=== PATIENT | female | born 1995 | race Caucasian/White ===

== ENCOUNTER → 2016-06-21 | Outpatient (REF) | payer OTHER | LOC: M SFHCLERA 19:38 | PROVIDERS: ATTEND Nurse Practitioner Family | DX: J02.9 Acute pharyngitis, unspecified (principal) ==

== ENCOUNTER 2016-06-22 10:16 | Emergency (ER) | payer OTHER ==
[2016-06-22] MEDS ORDERED: KETOROLAC 30 MG/ML VIAL (J1885) As Ordered ONE (11:13)
[2016-06-22] MEDS ORDERED: dexameTHASONE 4 MG/ML 1ML VIAL (J1100) As Ordered ONE (11:13)
[2016-06-22] MEDS ORDERED: ONDANSETRON 4MG/2ML VIAL (J2405) As Ordered ONE (11:13)
[2016-06-22 11:36] LABS: BASO # 0.2 K/mm3 (0.0-0.2); BASO % 1.7 % (0.0-1.0); EOS # 0.3 K/mm3 (0.0-0.50); EOS % 2.3 % (0.0-3.0); LARGE UNSTAINED CELL # 0.3 K/mm3 (0.0-0.4); LARGE UNSTAINED CELL % 2.4 % (0.0-4.0); LYMPH # 2.2 K/mm3 (1.5-6.5); LYMPH % 12.7 % (24.0-44.0); MEAN CORPUSCULAR HGB CONC 33.8 g/dl (32.0-36.5); MEAN CORPUSCULAR VOLUME 88.7 fl (80.0-96.0); MONO # 0.5 K/mm3 (0.0-0.8); MONO % 3.5 % (0.0-5.0); NEUTROPHILS # 11.3 K/mm3 (1.8-7.7); NEUTROPHILS % 77.5 % (36.0-66.0); PLATELET COUNT, AUTOMATED 314 k/mm3 (150-450); RED CELL DISTRIBUTION WIDTH 12.9 % (11.5-14.5); WHITE BLOOD COUNT 14.6 K/mm3 (4.0-10.0)
[2016-06-22 12:29] LABS: ANION GAP 8 MEQ/L (8-16); BLOOD UREA NITROGEN 12 MG/DL (7-18); CALCIUM LEVEL 8.5 MG/DL (8.5-10.1); CARBON DIOXIDE LEVEL 28 MEQ/L (21-32); CHLORIDE LEVEL 106 MEQ/L (98-107); CREATININE FOR GFR 0.74 MG/DL (0.55-1.02); GLOMERULAR FILTRATION RATE > 60.0 (>60); GLUCOSE, FASTING 82 MG/DL (70-105); POTASSIUM SERUM 4.1 MEQ/L (3.5-5.1); SODIUM LEVEL 142 MEQ/L (136-145)
[2016-06-22] MEDS ORDERED: ISOVUE-370 76% 100ML VIAL (Q9967) As Ordered ONE (12:34)
--- NOTE | 2016-06-22 13:19 | REP ---
Clinical: Swelling. Rule out abscess. Technique: Axial contrast enhanced images from the mid skull through the thoracic inlet using 100 ml Isovue 370 intravenous contrast material with coronal and sagittal re-formations. Findings: Moderate diffuse mucoperiosteal changes involving the visualized ethmoid sphenoid and maxillary sinuses (left greater than right) compatible with acute / chronic sinusitis. The osseous structures are intact. Visualized portions of the bilateral orbits are symmetric and normal. The surrounding subcutaneous and soft tissues are relatively clear and without significant inflammatory changes. The airway is patent and midline. The parapharyngeal and retropharyngeal soft tissues are normal. There is no abscess, fluid collection or mass. Impression: Moderate acute/chronic sinusitis. No abscess, fluid collection or mass/mass effect. Signed by Eric Rob MD 06/22/2016 01:11 P
--- NOTE | 2016-06-22 13:44 | EDDOCDS ---
Physician Documentation [facility] Name: Liz Benítez Age: 21 yrs Sex: Female : 1995 Arrival Date: 06/22/2016 Time: 10:16 Bed I3 / M3 Private MD: ANGIE Kamara Disposition: 06/22/16 13:34 Discharged to Home/Self Care. Impression: Acute pharyngitis. - Condition is Stable. - Discharge Instructions: Pharyngitis, Salt Water Gargle. - Medication Reconciliation, Local Pharmacy Hours form. - Follow up: ANGIE Kamara; When: 2 - 3 days; Reason: Recheck today's complaints. Follow up: Emergency Department; When: As needed; Reason: Fever > 102F, Trouble breathing, Worsening of conditions. - Problem is new. - Symptoms have improved. - Notes: start amoxicillin as previously prescribed today, take as directed Historical: - Allergies: Morphine (Hives); Tramadol HCl (Hives); - Home Meds: 1. Ortho Tri-Cyclen (28) 0.18/0.215/0.25 mg-35 mcg (28) Oral tab 1 tab once daily 2. Cymbalta 30 mg Oral cpDR 1 cap once daily (Last dose: 06/21/2016) 3. acetaminophen 325 mg Oral tab 2 tabs every 4 hours (Last dose: 06/22/2016 05:00) 4. ibuprofen 400 mg Oral tab as needed (Last dose: 06/21/2016 19:00) - PMHx: none; - PSHx: back surgery; wisdom teeth extraction; ; - Social history: Smoking status: Patient states was never smoker of tobacco. No barriers to communication noted, The patient speaks fluent Azeri, Speaks appropriately for age. - Family history: Not pertinent. - : The pt / caregiver states he / she is not on anticoagulants. Home medication list is obtained from the patient. - Exposure Risk Screening:: None identified. 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 7 in. (170.18 cm) (R); Pain 10/10; 12:36 BP 126 / 73; Pulse 76; Resp 16; Temp 98.6(O); Pulse Ox 100% on R/A; kr3 13:43 BP 120 / 59; Pulse 88; Resp 16; Temp 99.1(O); Pulse Ox 95% on R/A; Pain 0/10; kr3 10:18 Body Mass Index 32.11 (92.99 kg, 170.18 cm) ct3 MDM: 11:03 IV Saline Lock ordered. ar2 11:03 Dexamethasone 8 mg IV at bolus once ordered. ar2 11:03 Ondansetron 4 mg IVP once ordered. ar2 11:03 NS 0.9% 1000 ml IV at bolus once ordered. ar2 11:03 ketorolac 30 mg IVP once ordered. ar2 11:04 CBC with Diff Ordered. EDMS 11:04 MED Profile Ordered. EDMS 11:04 CT Neck With Contrast Ordered. EDMS 11:38 Financial registration complete. mm15 11:43 [facility] Payment Agreement was scanned into [employer] and attached to record. mm15 12:38 CBC with Diff Reviewed. ar2 12:38 MED Profile Reviewed. ar2 Administered Medications: 11:24 Drug: Ondansetron 4 mg [ondansetron HCl 2 mg/mL intravenous solution (2 mL)] Route: kr3 IVP; Site: right hand; 12:09 Follow up: Response: No Adverse Reaction kr3 11:26 Drug: NS 0.9% 1000 ml [sodium chloride 0.9 % intravenous solution] Route: IV; Rate: kr3 bolus; Site: right hand; 12:36 Follow up: BP 126 / 73; Pulse 76 bpm; Resp 16 bpm; Temp 98.6 Oral; Pulse Ox 100% RA kr3 13:44 Follow up: IV Status: Completed infusion; IV Intake: 1000ml kr3 11:26 Drug: ketorolac 30 mg [ketorolac 30 mg/mL (1 mL) injection solution (1 mL)] Route: IVP; kr3 Site: right hand; 12:09 Follow up: Response: No significant change. kr3 11:29 Drug: Dexamethasone 8 mg [dexamethasone 4 mg/mL injection solution] Route: IV; Rate: kr3 bolus; Site: right hand; 12:09 Follow up: Response: No significant change.; IV Status: Completed infusion kr3 13:44 Follow up: IV Status: Completed infusion kr3 Signatures: Dispatcher [employer] Andria Leon,JASMIN RN kr3 Edward Urban, PA-C PA-C ar2 Yenny Kaur RN RN hs1 Mona Gamboa mm15 The chart was reviewed and I authenticate all verbal orders and agree with the evaluation and treatment provided.Attachments: 11:43 [facility] Payment Agreement mm15 MTDD
--- NOTE | 2016-06-22 13:44 | EDDOCDS ---
Nurse's Notes [facility] Name: Liz Benítez Age: 21 yrs Sex: Female : 1995 Arrival Date: 06/22/2016 Time: 10:16 Bed I3 / M3 Private MD: ANGIE Kamara Diagnosis: Acute pharyngitis Presentation: 06/22 10:27 Presenting complaint: Patient states: saw PCP on Tuesday for sore throat and was given hs1 ibuprofen and tylenol. Next saw urgent care last night for same sore throat and was tested for strep and mono and was negative. Patient presents here for same and states that sore throat is increased and patient has difficulty swallowing. Was told to see ER by PCP office today. Risk factors: Stridor is not present. Drooling is not present. Shortness of breath is not present. Cellulitis is not present. Adult Sepsis Screening: The patient does not have new or worsening altered mentation. Patient's respiratory rate is less than 22. Systolic blood pressure is greater than 100. Patient has a qSOFA score of 0- Negative Sepsis Screen. Suicide/Homicide risk assessment- the patient denies having any suicidal and/or homicidal ideations and does not present with any other emotional, behavioral or mental health complaints. Status: The patient is a dependent. Transition of care: patient was not received from another setting of care. 10:27 Acuity: MONA Level 4 hs1 10:27 Method Of Arrival: Walkin/Carried/Asstd hs1 10:34 Presenting complaint: patient states that she was given Rx for amoxicillin but has not hs1 filled prescription yesterday. Triage Assessment: 10:32 General: Appears in no apparent distress, Behavior is appropriate for age, cooperative. hs1 Pain: Location: neck Pain currently is 9 out of 10 on a pain scale. HIV screening NA for this visit Offered previously. EENT: Reports difficulty swallowing feels like knives. Derm: Skin is pink, warm & dry. normal. 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 Ortho Tri-Cyclen (28) 0.18/0.215/0.25 mg-35 mcg (28) Oral tab 1 tab once daily 2. Cymbalta 30 mg Oral cpDR 1 cap once daily (Last dose: 06/21/2016) 3. acetaminophen 325 mg Oral tab 2 tabs every 4 hours (Last dose: 06/22/2016 05:00) 4. ibuprofen 400 mg Oral tab as needed (Last dose: 06/21/2016 19:00) - PMHx: none; - PSHx: back surgery; wisdom teeth extraction; ; - Social history: Smoking status: Patient states was never smoker of tobacco. No barriers to communication noted, The patient speaks fluent Greenlandic, Speaks appropriately for age. - Family history: Not pertinent. - : The pt / caregiver states he / she is not on anticoagulants. Home medication list is obtained from the patient. - Exposure Risk Screening:: None identified. Screenin:33 Screening information is obtained from the patient. Fall risk: No risks identified. hs1 Assistance ADL's: requires no assistance with activities of daily living. Abuse/DV Screen: The patient / caregiver reports he/she is: not in a situation that causes fear, pain or injury. Nutritional screening: No deficits noted. Advance Directives: There is no active DNR order. home support is adequate. Assessment: 11:28 General: Appears in no apparent distress, comfortable, Behavior is appropriate for age, kr3 cooperative, pleasant. Pain: Location: ears and nose and throat Pain currently is 10 out of 10 on a pain scale. Neurological: No deficits noted. EENT: Throat is clear Reports pressure both ears, post nasal drainage and discomfort swallowing. Respiratory: Airway is patent Respiratory effort is even, unlabored. GI: Reports intolerance of food, intolerance of fluids. Derm: Skin is normal. 12:09 Reassessment: Patient appears in no apparent distress at this time. reports no kr3 improvement, reports 'my throat is killing me'. Respiratory: Respiratory effort is even, unlabored. Derm: Skin is normal. 12:36 Reassessment: Patient appears in no apparent distress at this time. states ear pressure kr3 is much better but throat is 9/10 pain. 13:43 Reassessment: Patient appears in no apparent distress at this time. Patient denies pain kr3 at this time. Vital Signs: 10:18 BP 106 / 64; Pulse 111; Resp 18; Temp 98.1(O); Pulse Ox 97% on R/A; Weight 92.99 kg ct3 (R); Height 5 ft. 7 in. (170.18 cm) (R); Pain 10/10; 12:36 BP 126 / 73; Pulse 76; Resp 16; Temp 98.6(O); Pulse Ox 100% on R/A; kr3 13:43 BP 120 / 59; Pulse 88; Resp 16; Temp 99.1(O); Pulse Ox 95% on R/A; Pain 0/10; kr3 10:18 Body Mass Index 32.11 (92.99 kg, 170.18 cm) ct3 Vitals: 10:18 Log In Time: June 22, 2016 at 10:15. ct3 ED Course: 10:18 Patient visited by Lisbeth Morris PCA. ct3 10:18 MATTEO Kamara is Private Physician. ct3 10:18 Patient moved to Waiting ct3 10:19 Patient moved to Pre RCE ct3 10:30 Triage Initiated hs1 10:34 The patient / caregiver is instructed regarding the plan of care and ED course. hs1 10:50 Patient moved to Triage 3 rs6 10:55 Edward Urban PA-C is PHCP. ar2 10:55 Stephy Burnette MD is Attending Physician. ar2 10:55 Patient visited by Edward Urban PA-C. ar2 11:11 Patient moved to I3 / M3 ms18 11:28 Patient visited by Andria Greenberg RN. kr3 11:28 Accompanied by Friend, Patient has correct armband on for positive identification. kr3 Placed in gown. Bed in low position. Call light in reach. Side rails up X 1. 11:28 Inserted saline lock: 20 gauge in right hand and blood collected. kr3 11:30 MED Profile Sent. kr3 11:30 CBC with Diff Sent. kr3 11:43 [place] [place] was scanned into [employer] and attached to record. mm15 12:08 Patient visited by Andria Greenberg RN. kr3 12:49 Patient visited by Gloria Samson RN. mcp 12:49 Warm blanket given. mcp 13:34 ANGIE Kamara is Referral Physician. ar2 13:43 Discontinued lock intact, bleeding controlled, pressure dressing applied, No kr3 redness/swelling at site. No procedures done that require assistance. Administered Medications: 11:24 Drug: Ondansetron 4 mg [ondansetron HCl 2 mg/mL intravenous solution (2 mL)] Route: kr3 IVP; Site: right hand; 12:09 Follow up: Response: No Adverse Reaction kr3 11:26 Drug: NS 0.9% 1000 ml [sodium chloride 0.9 % intravenous solution] Route: IV; Rate: kr3 bolus; Site: right hand; 12:36 Follow up: BP 126 / 73; Pulse 76 bpm; Resp 16 bpm; Temp 98.6 Oral; Pulse Ox 100% RA kr3 13:44 Follow up: IV Status: Completed infusion; IV Intake: 1000ml kr3 11:26 Drug: ketorolac 30 mg [ketorolac 30 mg/mL (1 mL) injection solution (1 mL)] Route: IVP; kr3 Site: right hand; 12:09 Follow up: Response: No significant change. kr3 11:29 Drug: Dexamethasone 8 mg [dexamethasone 4 mg/mL injection solution] Route: IV; Rate: kr3 bolus; Site: right hand; 12:09 Follow up: Response: No significant change.; IV Status: Completed infusion kr3 13:44 Follow up: IV Status: Completed infusion kr3 Intake: 13:44 IV: 1000.00ml; Total: 1000.00ml. kr3 Order Results: Lab Order: CBC with Diff; SPEC'M 06/22/16 11:23 Test: WHITE BLOOD COUNT; Value: 14.6; Range: 4.0-10.0; Abnormal: Above high normal; Units: K/mm3; Status: F Test: RED BLOOD COUNT; Value: 4.84; Range: 4.00-5.40; Units: M/mm3; Status: F Test: HEMOGLOBIN; Value: 14.5; Range: 12.0-16.0; Units: g/dl; Status: F Test: HEMATOCRIT; Value: 42.9; Range: 36.0-47.0; Units: %; Status: F Test: MEAN CORPUSCULAR VOLUME; Value: 88.7; Range: 80.0-96.0; Units: fl; Status: F Test: MEAN CORPUSCULAR HEMOGLOBIN; Value: 30.0; Range: 27.0-33.0; Units: pg; Status: F Test: MEAN CORPUSCULAR HGB CONC; Value: 33.8; Range: 32.0-36.5; Units: g/dl; Status: F Test: RED CELL DISTRIBUTION WIDTH; Value: 12.9; Range: 11.5-14.5; Units: %; Status: F Test: PLATELET COUNT, AUTOMATED; Value: 314; Range: 150-450; Units: k/mm3; Status: F Test: NEUTROPHILS %; Value: 77.5; Range: 36.0-66.0; Abnormal: Above high normal; Units: %; Status: F Test: LYMPH %; Value: 12.7; Range: 24.0-44.0; Abnormal: Below low normal; Units: %; Status: F Test: MONO %; Value: 3.5; Range: 0.0-5.0; Units: %; Status: F Test: EOS %; Value: 2.3; Range: 0.0-3.0; Units: %; Status: F Test: BASO %; Value: 1.7; Range: 0.0-1.0; Abnormal: Above high normal; Units: %; Status: F Test: LARGE UNSTAINED CELL %; Value: 2.4; Range: 0.0-4.0; Units: %; Status: F Test: NEUTROPHILS #; Value: 11.3; Range: 1.8-7.7; Abnormal: Above high normal; Units: K/mm3; Status: F Test: LYMPH #; Value: 2.2; Range: 1.5-6.5; Units: K/mm3; Status: F Test: MONO #; Value: 0.5; Range: 0.0-0.8; Units: K/mm3; Status: F Test: EOS #; Value: 0.3; Range: 0.0-0.50; Units: K/mm3; Status: F Test: BASO #; Value: 0.2; Range: 0.0-0.2; Units: K/mm3; Status: F Test: LARGE UNSTAINED CELL #; Value: 0.3; Range: 0.0-0.4; Units: K/mm3; Status: F Lab Order: MED Profile; SPEC'M 06/22/16 12:01 Test: GLUCOSE, FASTING; Value: 82; Range: 70-105; Units: MG/DL; Status: F Test: BLOOD UREA NITROGEN; Value: 12; Range: 7-18; Units: MG/DL; Status: F Test: CREATININE FOR GFR; Value: 0.74; Range: 0.55-1.02; Units: MG/DL; Status: F Test: GLOMERULAR FILTRATION RATE; Value: > 60.0; Range: >60; Status: F Test: SODIUM LEVEL; Value: 142; Range: 136-145; Units: MEQ/L; Status: F Test: POTASSIUM SERUM; Value: 4.1; Range: 3.5-5.1; Units: MEQ/L; Status: F Test: CHLORIDE LEVEL; Value: 106; Range: 98-107; Units: MEQ/L; Status: F Test: CARBON DIOXIDE LEVEL; Value: 28; Range: 21-32; Units: MEQ/L; Status: F Test: ANION GAP; Value: 8; Range: 8-16; Units: MEQ/L; Status: F Test: CALCIUM LEVEL; Value: 8.5; Range: 8.5-10.1; Units: MG/DL; Status: F Test Note: ; Units are mL/min/1.73 m2 Chronic Kidney Disease Staging per NKF: Stage I & II GFR >=60 Normal to Mildly Decreased Stage III GFR 30-59 Moderately Decreased Stage IV GFR 15-29 Severely Decreased Stage V GFR <15 Very Little GFR Left ESRD GFR <15 on PATTERNMAKER ALL AROUND Outcome: 13:34 Discharge ordered by Provider. ar2 13:42 Discharge Assessment: patient administered narcotics - no. The following High Risk kr3 Discharge criteria are identified: None. Discharged to home ambulatory, with friend. Condition: improved. Discharge instructions given to patient, Instructed on discharge instructions, follow up and referral plans. medication usage, Demonstrated understanding of instructions, medications, Pt was receptive of discharge instructions/ teaching. CT Study completed. Property sent home with patient. 13:44 Patient left the ED. kr3 Signatures: Gloria Samson RN JASMIN [facility] Andria Greenberg RN RN kr3 Edward Urban, PA-C PA-C ar2 eYnny Kaur RN RN hs1 Lisbeth Morris, MATERNITY FLOOR SUPERVISOR MATERNITY FLOOR SUPERVISOR ct3 Mona Gamboa mm15 Orin Sebastian RN RN ms18 Vinicio, Isaura, MATERNITY FLOOR SUPERVISOR MATERNITY FLOOR SUPERVISOR rs6 MTDD
--- NOTE | 2016-06-24 14:45 | EDDOCDS ---
Nurse's Notes [facility] Name: Liz Benítez Age: 21 yrs Sex: Female : 1995 Arrival Date: 06/22/2016 Time: 10:16 Bed I3 / M3 Private MD: ANGIE Kamara Diagnosis: Acute pharyngitis Presentation: 06/22 10:27 Presenting complaint: Patient states: saw PCP on Tuesday for sore throat and was given hs1 ibuprofen and tylenol. Next saw urgent care last night for same sore throat and was tested for strep and mono and was negative. Patient presents here for same and states that sore throat is increased and patient has difficulty swallowing. Was told to see ER by PCP office today. Risk factors: Stridor is not present. Drooling is not present. Shortness of breath is not present. Cellulitis is not present. Adult Sepsis Screening: The patient does not have new or worsening altered mentation. Patient's respiratory rate is less than 22. Systolic blood pressure is greater than 100. Patient has a qSOFA score of 0- Negative Sepsis Screen. Suicide/Homicide risk assessment- the patient denies having any suicidal and/or homicidal ideations and does not present with any other emotional, behavioral or mental health complaints. Status: The patient is a dependent. Transition of care: patient was not received from another setting of care. 10:27 Acuity: MONA Level 4 hs1 10:27 Method Of Arrival: Walkin/Carried/Asstd hs1 10:34 Presenting complaint: patient states that she was given Rx for amoxicillin but has not hs1 filled prescription yesterday. Triage Assessment: 10:32 General: Appears in no apparent distress, Behavior is appropriate for age, cooperative. hs1 Pain: Location: neck Pain currently is 9 out of 10 on a pain scale. HIV screening NA for this visit Offered previously. EENT: Reports difficulty swallowing feels like knives. Derm: Skin is pink, warm & dry. normal. COOKER SODA: 10:33 LMP 06/20/2016 hs1 Historical: - Allergies: Morphine (Hives); Tramadol HCl (Hives); - Home Meds: 1. Ortho Tri-Cyclen (28) 0.18/0.215/0.25 mg-35 mcg (28) Oral tab 1 tab once daily 2. Cymbalta 30 mg Oral cpDR 1 cap once daily (Last dose: 06/21/2016) 3. acetaminophen 325 mg Oral tab 2 tabs every 4 hours (Last dose: 06/22/2016 05:00) 4. ibuprofen 400 mg Oral tab as needed (Last dose: 06/21/2016 19:00) - PMHx: none; - PSHx: back surgery; wisdom teeth extraction; ; - Social history: Smoking status: Patient states was never smoker of tobacco. No barriers to communication noted, The patient speaks fluent Macedonian, Speaks appropriately for age. - Family history: Not pertinent. - : The pt / caregiver states he / she is not on anticoagulants. Home medication list is obtained from the patient. - Exposure Risk Screening:: None identified. Screenin:33 Screening information is obtained from the patient. Fall risk: No risks identified. hs1 Assistance ADL's: requires no assistance with activities of daily living. Abuse/DV Screen: The patient / caregiver reports he/she is: not in a situation that causes fear, pain or injury. Nutritional screening: No deficits noted. Advance Directives: There is no active DNR order. home support is adequate. Assessment: 11:28 General: Appears in no apparent distress, comfortable, Behavior is appropriate for age, kr3 cooperative, pleasant. Pain: Location: ears and nose and throat Pain currently is 10 out of 10 on a pain scale. Neurological: No deficits noted. EENT: Throat is clear Reports pressure both ears, post nasal drainage and discomfort swallowing. Respiratory: Airway is patent Respiratory effort is even, unlabored. GI: Reports intolerance of food, intolerance of fluids. Derm: Skin is normal. 12:09 Reassessment: Patient appears in no apparent distress at this time. reports no kr3 improvement, reports 'my throat is killing me'. Respiratory: Respiratory effort is even, unlabored. Derm: Skin is normal. 12:36 Reassessment: Patient appears in no apparent distress at this time. states ear pressure kr3 is much better but throat is 9/10 pain. 13:43 Reassessment: Patient appears in no apparent distress at this time. Patient denies pain kr3 at this time. Vital Signs: 10:18 BP 106 / 64; Pulse 111; Resp 18; Temp 98.1(O); Pulse Ox 97% on R/A; Weight 92.99 kg ct3 (R); Height 5 ft. 7 in. (170.18 cm) (R); Pain 10/10; 12:36 BP 126 / 73; Pulse 76; Resp 16; Temp 98.6(O); Pulse Ox 100% on R/A; kr3 13:43 BP 120 / 59; Pulse 88; Resp 16; Temp 99.1(O); Pulse Ox 95% on R/A; Pain 0/10; kr3 10:18 Body Mass Index 32.11 (92.99 kg, 170.18 cm) ct3 Vitals: 10:18 Log In Time: June 22, 2016 at 10:15. ct3 ED Course: 10:18 Patient visited by Lisbeth Morris PCA. ct3 10:18 MATTEO Kamara is Private Physician. ct3 10:18 Patient moved to Waiting ct3 10:19 Patient moved to Pre RCE ct3 10:30 Triage Initiated hs1 10:34 The patient / caregiver is instructed regarding the plan of care and ED course. hs1 10:50 Patient moved to Triage 3 rs6 10:55 Edward Urban PA-C is PHCP. ar2 10:55 Stephy Burnette MD is Attending Physician. ar2 10:55 Patient visited by Edward Urban PA-C. ar2 11:11 Patient moved to I3 / M3 ms18 11:28 Patient visited by Andria Greenberg RN. kr3 11:28 Accompanied by Friend, Patient has correct armband on for positive identification. kr3 Placed in gown. Bed in low position. Call light in reach. Side rails up X 1. 11:28 Inserted saline lock: 20 gauge in right hand and blood collected. kr3 11:30 MED Profile Sent. kr3 11:30 CBC with Diff Sent. kr3 11:43 [facility] [place] was [place] into [employer] and attached to record. mm15 12:08 Patient visited by Andria Greenberg RN. kr3 12:49 Patient visited by Gloria Samson RN. mcp 12:49 Warm blanket given. mcp 13:34 ANGIE Kamara is Referral Physician. ar2 13:43 Discontinued lock intact, bleeding controlled, pressure dressing applied, No kr3 redness/swelling at site. No procedures done that require assistance. 14:14 CT Neck With Contrast Returned. EDMS 14:41 T-Sheet-- Draft Copy was scanned into [employer] and attached to record. gb Administered Medications: 11:24 Drug: Ondansetron 4 mg [ondansetron HCl 2 mg/mL intravenous solution (2 mL)] Route: kr3 IVP; Site: right hand; 12:09 Follow up: Response: No Adverse Reaction kr3 11:26 Drug: NS 0.9% 1000 ml [sodium chloride 0.9 % intravenous solution] Route: IV; Rate: kr3 bolus; Site: right hand; 12:36 Follow up: BP 126 / 73; Pulse 76 bpm; Resp 16 bpm; Temp 98.6 Oral; Pulse Ox 100% RA kr3 13:44 Follow up: IV Status: Completed infusion; IV Intake: 1000ml kr3 11:26 Drug: ketorolac 30 mg [ketorolac 30 mg/mL (1 mL) injection solution (1 mL)] Route: IVP; kr3 Site: right hand; 12:09 Follow up: Response: No significant change. kr3 11:29 Drug: Dexamethasone 8 mg [dexamethasone 4 mg/mL injection solution] Route: IV; Rate: kr3 bolus; Site: right hand; 12:09 Follow up: Response: No significant change.; IV Status: Completed infusion kr3 13:44 Follow up: IV Status: Completed infusion kr3 Intake: 13:44 IV: 1000.00ml; Total: 1000.00ml. kr3 Order Results: Lab Order: CBC with Diff; SPEC'M 06/22/16 11:23 Test: WHITE BLOOD COUNT; Value: 14.6; Range: 4.0-10.0; Abnormal: Above high normal; Units: K/mm3; Status: F Test: RED BLOOD COUNT; Value: 4.84; Range: 4.00-5.40; Units: M/mm3; Status: F Test: HEMOGLOBIN; Value: 14.5; Range: 12.0-16.0; Units: g/dl; Status: F Test: HEMATOCRIT; Value: 42.9; Range: 36.0-47.0; Units: %; Status: F Test: MEAN CORPUSCULAR VOLUME; Value: 88.7; Range: 80.0-96.0; Units: fl; Status: F Test: MEAN CORPUSCULAR HEMOGLOBIN; Value: 30.0; Range: 27.0-33.0; Units: pg; Status: F Test: MEAN CORPUSCULAR HGB CONC; Value: 33.8; Range: 32.0-36.5; Units: g/dl; Status: F Test: RED CELL DISTRIBUTION WIDTH; Value: 12.9; Range: 11.5-14.5; Units: %; Status: F Test: PLATELET COUNT, AUTOMATED; Value: 314; Range: 150-450; Units: k/mm3; Status: F Test: NEUTROPHILS %; Value: 77.5; Range: 36.0-66.0; Abnormal: Above high normal; Units: %; Status: F Test: LYMPH %; Value: 12.7; Range: 24.0-44.0; Abnormal: Below low normal; Units: %; Status: F Test: MONO %; Value: 3.5; Range: 0.0-5.0; Units: %; Status: F Test: EOS %; Value: 2.3; Range: 0.0-3.0; Units: %; Status: F Test: BASO %; Value: 1.7; Range: 0.0-1.0; Abnormal: Above high normal; Units: %; Status: F Test: LARGE UNSTAINED CELL %; Value: 2.4; Range: 0.0-4.0; Units: %; Status: F Test: NEUTROPHILS #; Value: 11.3; Range: 1.8-7.7; Abnormal: Above high normal; Units: K/mm3; Status: F Test: LYMPH #; Value: 2.2; Range: 1.5-6.5; Units: K/mm3; Status: F Test: MONO #; Value: 0.5; Range: 0.0-0.8; Units: K/mm3; Status: F Test: EOS #; Value: 0.3; Range: 0.0-0.50; Units: K/mm3; Status: F Test: BASO #; Value: 0.2; Range: 0.0-0.2; Units: K/mm3; Status: F Test: LARGE UNSTAINED CELL #; Value: 0.3; Range: 0.0-0.4; Units: K/mm3; Status: F Lab Order: MED Profile; IQRA'Wendy 06/22/16 12:01 Test: GLUCOSE, FASTING; Value: 82; Range: 70-105; Units: MG/DL; Status: F Test: BLOOD UREA NITROGEN; Value: 12; Range: 7-18; Units: MG/DL; Status: F Test: CREATININE FOR GFR; Value: 0.74; Range: 0.55-1.02; Units: MG/DL; Status: F Test: GLOMERULAR FILTRATION RATE; Value: > 60.0; Range: >60; Status: F Test: SODIUM LEVEL; Value: 142; Range: 136-145; Units: MEQ/L; Status: F Test: POTASSIUM SERUM; Value: 4.1; Range: 3.5-5.1; Units: MEQ/L; Status: F Test: CHLORIDE LEVEL; Value: 106; Range: 98-107; Units: MEQ/L; Status: F Test: CARBON DIOXIDE LEVEL; Value: 28; Range: 21-32; Units: MEQ/L; Status: F Test: ANION GAP; Value: 8; Range: 8-16; Units: MEQ/L; Status: F Test: CALCIUM LEVEL; Value: 8.5; Range: 8.5-10.1; Units: MG/DL; Status: F Test Note: ; Units are mL/min/1.73 m2 Chronic Kidney Disease Staging per NKF: Stage I & II GFR >=60 Normal to Mildly Decreased Stage III GFR 30-59 Moderately Decreased Stage IV GFR 15-29 Severely Decreased Stage V GFR <15 Very Little GFR Left ESRD GFR <15 on [facility] SPECIALIST Radiology Order: CT Neck With Contrast Test: CT Neck With Contrast REASON FOR EXAMINATION: r/o abscess; Clinical: Swelling. Rule out abscess.; ; Technique: Axial contrast enhanced images from the mid skull through the; thoracic inlet using 100 ml Isovue 370 intravenous contrast material with coronal; and sagittal re-formations.; ; Findings:; Moderate diffuse mucoperiosteal changes involving the visualized ethmoid sphenoid; and maxillary sinuses (left greater than right) compatible with acute / chronic; sinusitis. The osseous structures are intact. Visualized portions of the; bilateral orbits are symmetric and normal. The surrounding subcutaneous and soft; tissues are relatively clear and without significant inflammatory changes. The; airway is patent and midline. The parapharyngeal and retropharyngeal soft; tissues are normal. There is no abscess, fluid collection or mass.; ; Impression:; Moderate acute/chronic sinusitis.; No abscess, fluid collection or mass/mass effect.; ; ; Signed by; Eric Rob MD 06/22/2016 01:11 P; Outcome: 13:34 Discharge ordered by Provider. ar2 13:42 Discharge Assessment: patient administered narcotics - no. The following High Risk kr3 Discharge criteria are identified: None. Discharged to home ambulatory, with friend. Condition: improved. Discharge instructions given to patient, Instructed on discharge instructions, follow up and referral plans. medication usage, Demonstrated understanding of instructions, medications, Pt was receptive of discharge instructions/ teaching. CT Study completed. Property sent home with patient. 13:44 Patient left the ED. kr3 Signatures: Dispatcher [employer] EDMS Gloria Samson, RN RN mcp Jemma Hammond, Juan Pablo Reg gb Andria Greenberg RN RN kr3 Edward Urban, PA-C PA-C ar2 Yenny Kaur RN RN hs1 Lisbeth Morris, ASSISTANT RESEARCH SCIENTIST ASSISTANT RESEARCH SCIENTIST ct3 Mona Gamboa mm15 Orin Sebastian RN RN ms18 Isaura Mooney, ASSISTANT RESEARCH SCIENTIST ASSISTANT RESEARCH SCIENTIST rs6 Chart Complete MTDD
--- NOTE | 2016-06-24 14:45 | EDDOCDS ---
Physician Documentation [facility] Name: Liz Benítez Age: 21 yrs Sex: Female : 1995 Arrival Date: 06/22/2016 Time: 10:16 Bed I3 / M3 Private MD: ANGIE Kamara Disposition: 06/22/16 13:34 Discharged to Home/Self Care. Impression: Acute pharyngitis. - Condition is Stable. - Discharge Instructions: Pharyngitis, Salt Water Gargle. - Medication Reconciliation, Local Pharmacy Hours form. - Follow up: ANGIE Kamara; When: 2 - 3 days; Reason: Recheck today's complaints. Follow up: Emergency Department; When: As needed; Reason: Fever > 102F, Trouble breathing, Worsening of conditions. - Problem is new. - Symptoms have improved. - Notes: start amoxicillin as previously prescribed today, take as directed Historical: - Allergies: Morphine (Hives); Tramadol HCl (Hives); - Home Meds: 1. Ortho Tri-Cyclen (28) 0.18/0.215/0.25 mg-35 mcg (28) Oral tab 1 tab once daily 2. Cymbalta 30 mg Oral cpDR 1 cap once daily (Last dose: 06/21/2016) 3. acetaminophen 325 mg Oral tab 2 tabs every 4 hours (Last dose: 06/22/2016 05:00) 4. ibuprofen 400 mg Oral tab as needed (Last dose: 06/21/2016 19:00) - PMHx: none; - PSHx: back surgery; wisdom teeth extraction; ; - Social history: Smoking status: Patient states was never smoker of tobacco. No barriers to communication noted, The patient speaks fluent Hungarian, Speaks appropriately for age. - Family history: Not pertinent. - : The pt / caregiver states he / she is not on anticoagulants. Home medication list is obtained from the patient. - Exposure Risk Screening:: None identified. 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 7 in. (170.18 cm) (R); Pain 10/10; 12:36 BP 126 / 73; Pulse 76; Resp 16; Temp 98.6(O); Pulse Ox 100% on R/A; kr3 13:43 BP 120 / 59; Pulse 88; Resp 16; Temp 99.1(O); Pulse Ox 95% on R/A; Pain 0/10; kr3 10:18 Body Mass Index 32.11 (92.99 kg, 170.18 cm) ct3 MDM: 11:03 IV Saline Lock ordered. ar2 11:03 Dexamethasone 8 mg IV at bolus once ordered. ar2 11:03 Ondansetron 4 mg IVP once ordered. ar2 11:03 NS 0.9% 1000 ml IV at bolus once ordered. ar2 11:03 ketorolac 30 mg IVP once ordered. ar2 11:04 CBC with Diff Ordered. EDMS 11:04 MED Profile Ordered. EDMS 11:04 CT Neck With Contrast Ordered. EDMS 11:38 Financial registration complete. mm15 11:43 [facility] Payment Agreement was scanned into [employer] and attached to record. mm15 12:38 CBC with Diff Reviewed. ar2 12:38 MED Profile Reviewed. ar2 14:41 T-Sheet-- Draft Copy was scanned into [employer] and attached to record. gb Administered Medications: 11:24 Drug: Ondansetron 4 mg [ondansetron HCl 2 mg/mL intravenous solution (2 mL)] Route: kr3 IVP; Site: right hand; 12:09 Follow up: Response: No Adverse Reaction kr3 11:26 Drug: NS 0.9% 1000 ml [sodium chloride 0.9 % intravenous solution] Route: IV; Rate: kr3 bolus; Site: right hand; 12:36 Follow up: BP 126 / 73; Pulse 76 bpm; Resp 16 bpm; Temp 98.6 Oral; Pulse Ox 100% RA kr3 13:44 Follow up: IV Status: Completed infusion; IV Intake: 1000ml kr3 11:26 Drug: ketorolac 30 mg [ketorolac 30 mg/mL (1 mL) injection solution (1 mL)] Route: IVP; kr3 Site: right hand; 12:09 Follow up: Response: No significant change. kr3 11:29 Drug: Dexamethasone 8 mg [dexamethasone 4 mg/mL injection solution] Route: IV; Rate: kr3 bolus; Site: right hand; 12:09 Follow up: Response: No significant change.; IV Status: Completed infusion kr3 13:44 Follow up: IV Status: Completed infusion kr3 Signatures: Dispatcher [employer] EDMS Jemma Hammond Reg Reg gb Andria Greenberg RN RN kr3 Edward Urban PA-C PATamia sun2 Yenny Kaur RN RN hs1 Mona Gamboa mm15 The chart was reviewed and I authenticate all verbal orders and agree with the evaluation and treatment provided.Attachments: 11:43 [facility] Payment Agreement mm15 14:41 T-Sheet-- Draft Copy gb Chart Complete MTDD
--- NOTE | 2016-06-24 14:45 | EDDOCDS ---
Physician Documentation [facility] Name: Liz Benítez Age: 21 yrs Sex: Female : 1995 Arrival Date: 06/22/2016 Time: 10:16 Bed I3 / M3 Private MD: ANGIE Kamara Disposition: 06/22/16 13:34 Discharged to Home/Self Care. Impression: Acute pharyngitis. - Condition is Stable. - Discharge Instructions: Pharyngitis, Salt Water Gargle. - Medication Reconciliation, Local Pharmacy Hours form. - Follow up: ANGIE Kamara; When: 2 - 3 days; Reason: Recheck today's complaints. Follow up: Emergency Department; When: As needed; Reason: Fever > 102F, Trouble breathing, Worsening of conditions. - Problem is new. - Symptoms have improved. - Notes: start amoxicillin as previously prescribed today, take as directed Historical: - Allergies: Morphine (Hives); Tramadol HCl (Hives); - Home Meds: 1. Ortho Tri-Cyclen (28) 0.18/0.215/0.25 mg-35 mcg (28) Oral tab 1 tab once daily 2. Cymbalta 30 mg Oral cpDR 1 cap once daily (Last dose: 06/21/2016) 3. acetaminophen 325 mg Oral tab 2 tabs every 4 hours (Last dose: 06/22/2016 05:00) 4. ibuprofen 400 mg Oral tab as needed (Last dose: 06/21/2016 19:00) - PMHx: none; - PSHx: back surgery; wisdom teeth extraction; ; - Social history: Smoking status: Patient states was never smoker of tobacco. No barriers to communication noted, The patient speaks fluent Divehi, Speaks appropriately for age. - Family history: Not pertinent. - : The pt / caregiver states he / she is not on anticoagulants. Home medication list is obtained from the patient. - Exposure Risk Screening:: None identified. 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 7 in. (170.18 cm) (R); Pain 10/10; 12:36 BP 126 / 73; Pulse 76; Resp 16; Temp 98.6(O); Pulse Ox 100% on R/A; kr3 13:43 BP 120 / 59; Pulse 88; Resp 16; Temp 99.1(O); Pulse Ox 95% on R/A; Pain 0/10; kr3 10:18 Body Mass Index 32.11 (92.99 kg, 170.18 cm) ct3 MDM: 11:03 IV Saline Lock ordered. ar2 11:03 Dexamethasone 8 mg IV at bolus once ordered. ar2 11:03 Ondansetron 4 mg IVP once ordered. ar2 11:03 NS 0.9% 1000 ml IV at bolus once ordered. ar2 11:03 ketorolac 30 mg IVP once ordered. ar2 11:04 CBC with Diff Ordered. EDMS 11:04 MED Profile Ordered. EDMS 11:04 CT Neck With Contrast Ordered. EDMS 11:38 Financial registration complete. mm15 11:43 ON LICENSE OF [facility] Payment Agreement was scanned into [employer] and attached to record. mm15 12:38 CBC with Diff Reviewed. ar2 12:38 MED Profile Reviewed. ar2 14:41 T-Sheet-- Draft Copy was scanned into [employer] and attached to record. gb Administered Medications: 11:24 Drug: Ondansetron 4 mg [ondansetron HCl 2 mg/mL intravenous solution (2 mL)] Route: kr3 IVP; Site: right hand; 12:09 Follow up: Response: No Adverse Reaction kr3 11:26 Drug: NS 0.9% 1000 ml [sodium chloride 0.9 % intravenous solution] Route: IV; Rate: kr3 bolus; Site: right hand; 12:36 Follow up: BP 126 / 73; Pulse 76 bpm; Resp 16 bpm; Temp 98.6 Oral; Pulse Ox 100% RA kr3 13:44 Follow up: IV Status: Completed infusion; IV Intake: 1000ml kr3 11:26 Drug: ketorolac 30 mg [ketorolac 30 mg/mL (1 mL) injection solution (1 mL)] Route: IVP; kr3 Site: right hand; 12:09 Follow up: Response: No significant change. kr3 11:29 Drug: Dexamethasone 8 mg [dexamethasone 4 mg/mL injection solution] Route: IV; Rate: kr3 bolus; Site: right hand; 12:09 Follow up: Response: No significant change.; IV Status: Completed infusion kr3 13:44 Follow up: IV Status: Completed infusion kr3 Signatures: Dispatcher [employer] EDMS Jemma Hammond Reg Reg gb Andria Greenberg RN RN kr3 Edward Urban PA-C PATamia sun2 Yenny Kaur RN RN hs1 Mona Gamboa mm15 The chart was reviewed and I authenticate all verbal orders and agree with the evaluation and treatment provided.Attachments: 11:43 ON LICENSE OF [facility] Payment Agreement mm15 14:41 T-Sheet-- Draft Copy gb Chart Complete MTDD
== END 2016-06-22 13:44 | disposition home or self-care (01) ==
LOC: M ED 10:16
DX: J02.9 Acute pharyngitis, unspecified (principal); Z79.899 Other long term (current) drug therapy; Z79.3 Long term (current) use of hormonal contraceptives; Z88.8 Allergy status to other drugs, medicaments and biological substances
CPT/HCPCS: 36415; 70491; 80048; 85025; 96361; 96365; 96375; 99284; J1100; J1885; J2405; Q9967

== ENCOUNTER → 2016-08-02 | Outpatient (CLI) | payer OTHER ==
--- NOTE | 2016-08-02 16:17 | REP ---
MAXILLOFACIAL CT WITHOUT CONTRAST: HISTORY: Chronic pansinusitis. Mild mucosal thickening is present in the maxillary and right ethmoid sinuses. Minimal mucosal thickening is present in the frontal, sphenoid and left ethmoid sinuses. Mucosal thickening involves the ostiomeatal units. The middle and inferior nasal turbinates are partially paradoxical. There is heron bullosa of the middle nasal turbinates. There is minimal deviation of the nasal septum to the left. A spur is present arising from the left side of the nasal septum. The spur abuts the left middle and inferior nasal turbinates. The cribriform plate, medial almendarez of the orbits and optic canals are intact. The carotid canals form a segment of the posterolateral almendarez of the sphenoid sinus. IMPRESSION: Sinus mucosal thickening as described above. Signed by Michael Dodge MD 08/02/2016 04:24 P
== END ==
LOC: M RAD 15:37
PROVIDERS: ATTEND Otolaryngology
DX: J32.4 Chronic pansinusitis (principal)

== ENCOUNTER 2016-10-18 22:45 | Emergency (ER) | payer OTHER ==
[~2016-10-18] VITALS: Ht 170.2 cm; Wt 96.2 kg
[2016-10-18] MEDS ORDERED: AMOX500C PO (22:57)
[2016-10-18] MEDS ORDERED: IBUP600T26 PO (22:57)
[2016-10-19 03:00] VITALS: BP 138/69
[2016-10-19] MEDS ORDERED: AMPICILLIN SOD/SULBACTAM SOD 3 GM in D5W MINI-BAG PLUS 100 ML IV ONE (03:15)
[2016-10-19] MEDS ORDERED: methylPREDNISolone INJ 125 MG/2 ML VIAL (J2930) IV ONE (03:15)
[2016-10-19] MEDS ORDERED: ACETAMINOPHEN 325 MG/10.15 ML UDC PO ONE (03:15)
[2016-10-19 03:51] LABS: BASO % 0.4 % (0.0-1.0); EOS # 0.2 K/mm3 (0.0-0.50); EOS % 1.4 % (0.0-3.0); LARGE UNSTAINED CELL # 0.2 K/mm3 (0.0-0.4); LARGE UNSTAINED CELL % 1.6 % (0.0-4.0); LYMPH # 2.1 K/mm3 (1.5-6.5); LYMPH % 14.9 % (24.0-44.0); MEAN CORPUSCULAR HEMOGLOBIN 31.4 pg (27.0-33.0); MEAN CORPUSCULAR HGB CONC 33.8 g/dl (32.0-36.5); MONO # 0.8 K/mm3 (0.0-0.8); MONO % 5.6 % (0.0-5.0); NEUTROPHILS # 10.7 K/mm3 (1.8-7.7); NEUTROPHILS % 76.2 % (36.0-66.0); PLATELET COUNT, AUTOMATED 234 k/mm3 (150-450)
[2016-10-19] MEDS ORDERED: diphenhydrAMINE INJ 50MG/ML VIAL (J1200) IV ONE (04:00)
[2016-10-19 04:06] LABS: CONTROL LINE HCG INT CTR LINE PRESENT
[2016-10-19 04:09] LABS: ANION GAP 9 MEQ/L (8-16); BLOOD UREA NITROGEN 7 MG/DL (7-18); CALCIUM LEVEL 7.9 MG/DL (8.5-10.1); CARBON DIOXIDE LEVEL 23 MEQ/L (21-32); CHLORIDE LEVEL 107 MEQ/L (98-107); CREATININE FOR GFR 0.59 MG/DL (0.55-1.02); GLOMERULAR FILTRATION RATE > 60.0 (>60); GLUCOSE, FASTING 88 MG/DL (70-105); POTASSIUM SERUM 3.9 MEQ/L (3.5-5.1); SODIUM LEVEL 139 MEQ/L (136-145)
[2016-10-19] MEDS ORDERED: CLINDAMYCIN 900 MG in APPROPRIATE DILUENT 1 EA IV ONE (06:30)
[2016-10-19] MEDS ORDERED: CLIN1CAP5 PO (08:53)
== END 2016-10-19 09:35 | disposition home or self-care (01) ==
LOC: M ED 23:50
DX: J02.0 Streptococcal pharyngitis (principal)
CPT/HCPCS: 80048; 84703; 85025; 96365; 96366; 96367; 96368; 96375; 99282; J1200; J2930

== ENCOUNTER 2017-01-18 19:23 | Emergency (ER) | payer OTHER ==
[~2017-01-18] VITALS: Ht 170.2 cm; Wt 99.1 kg
[~2017-01-18 19:23] MED LIST: AMOX500C PO; CLIN150C14 PO; IBUP-1022 PO
[2017-01-18] MEDS ORDERED: NEUR300C PO (19:32)
[2017-01-18] MEDS ORDERED: CONC18TA14 (19:32)
[2017-01-18 22:07] LABS: CONTROL LINE HCG INT CTR LINE PRESENT
[2017-01-18 22:42] VITALS: BP 126/69
--- NOTE | 2017-01-18 22:50 | REPUSA ---
CLINICAL HISTORY: Clinical concern for DVT. TECHNIQUE: Duplex ultrasound of the left lower extremity veins was performed with grayscale, color fl ow imaging and Doppler spectral analysis, without and with compression. LEFT LOWER EXTREMITY VENOUS DUPLEX ULTRASOUND: There is normal compressibility, flow and augmentation of the common femoral, superficial femoral, an d popliteal veins. IMPRESSION: No evidence of DVT in the left lower extremity.
--- NOTE | 2017-01-19 07:53 | REP ---
Left tibia-fibula four views : There is no fracture or dislocation. Mineralization and joint spaces are normal. There are no calcifications or foreign bodies. Impression: Negative Left tibia-fibula . Signed by Phuc Carlson MD 01/19/2017 07:45 A
== END 2017-01-18 22:48 | disposition home or self-care (01) ==
LOC: M ED 19:23
DX: S80.12XA Contusion of left lower leg, initial encounter (principal); W10.8XXA Fall (on) (from) other stairs and steps, initial encounter; Y92.099 Unspecified place in other non-institutional residence as the place of occurrence of the external cause; Y93.01 Activity, walking, marching and hiking; Y99.9 Unspecified external cause status

== ENCOUNTER 2017-04-22 20:21 | Emergency (ER) | payer OTHER ==
[~2017-04-22] VITALS: Ht 170.2 cm; Wt 96.4 kg
[~2017-04-22 20:21] MED LIST changes: +CONC18TA14; +NEUR300C PO
[2017-04-22] MEDS ORDERED: VITA50TA43 PO (20:28)
[2017-04-22] MEDS ORDERED: UNIS25TA2 PO (20:28)
[2017-04-22] MEDS ORDERED: PRENTAB55 (20:28)
[2017-04-22] MEDS ORDERED: ONDANSETRON 4MG/2ML VIAL (J2405) IV ONE (21:15)
[2017-04-22] MEDS ORDERED: NS 1,000 ML IV ONE (21:15)
[2017-04-22] MEDS ORDERED: ACETAMINOPHEN TAB 650MG DOSE (2X325MG) PO ONE (23:00)
--- NOTE | 2017-04-22 23:00 | REPUSA ---
Clinical history: Pain. Findings: Real-time transabdominal and transvaginal ultrasound images of the pelvis were obtained. Th ere is a single live intrauterine . Mean sac diameter measures 2.2 cm. The crown rump length of the pole measures 0.9 cm. heart rate measures 132 bpm. The uterus is unremarkable, m easuring 11.2 x 6.7 x 9.7 cm. There is no evidence of a subchorionic hemorrhage. The adnexa are withi n normal limits. There is a simple right ovarian cyst measuring 2.2 cm. There is no evidence of free fluid. Impression: 1. Single live intrauterine measuring 6 weeks 6 days, with estimated due date of 12/10/2017. 2. No gross abnormalities appreciated. 3. Right ovarian corpus luteum cyst.
[2017-04-22 23:46] VITALS: BP 135/80
[2017-04-22] MEDS ORDERED: ZOFR4TAB3 PO (23:51)
[2017-04-23] MEDS ORDERED: ONDANSETRON 4 MG ORAL DISINTEGRATING TAB (S0181) PO ONE
[2017-04-26] MEDS ORDERED: ORTHTAB14 PO (11:03)
== END 2017-04-23 00:06 | disposition home or self-care (01) ==
LOC: M ED 20:21
DX: O26.891 Other specified pregnancy related conditions, first trimester (principal); O21.9 Vomiting of pregnancy, unspecified; Z88.0 Allergy status to penicillin; Z88.5 Allergy status to narcotic agent; Z3A.01 Less than 8 weeks gestation of pregnancy
CPT/HCPCS: 76801; 81001; 84702; 96374; 99284; J2405

== ENCOUNTER 2017-05-28 08:57 | Emergency (ER) | payer OTHER ==
[~2017-05-28] VITALS: Ht 170.2 cm; Wt 99.5 kg
[~2017-05-28 08:57] MED LIST changes: +ORTHTAB14 PO; +PRENTAB55; +UNIS25TA2 PO; +VITA50TA43 PO; +ZOFR4TAB3 PO
[2017-05-28] MEDS ORDERED: PHEN2SUP PO (09:07)
--- NOTE | 2017-05-28 10:49 | REP ---
First trimester obstetric ultrasound, emergency room request for vaginal spotting: The study is performed with transabdominal imaging. The bladder is not distended. There is an intrauterine gestational sac with a pole. The heart rate is 157 beats per minute. The pole crown-rump length of 6.2 cm corresponding to 12 weeks 4 days gestational age. The DERRICK is 12/06/2017. No subchorionic hematoma is identified. The maternal adnexa and cul-de-sac are unremarkable. 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 Signed by Phuc Carlson MD 05/28/2017 10:41 A
[2017-05-28 11:15] VITALS: BP 117/83
== END 2017-05-28 11:16 | disposition home or self-care (01) ==
LOC: M ED 08:57
DX: O20.9 Hemorrhage in early pregnancy, unspecified (principal); Z3A.12 12 weeks gestation of pregnancy; O99.211 Obesity complicating pregnancy, first trimester; Z88.0 Allergy status to penicillin; Z88.5 Allergy status to narcotic agent

== ENCOUNTER 2017-06-30 13:04 | Emergency (ER) | payer OTHER | END 2017-06-30 14:34 | disposition home or self-care (01) | LOC: M ED 13:04 | DX: O9A.212 Injury, poisoning and certain other consequences of external causes complicating pregnancy, second trimester (principal); S39.002A Unspecified injury of muscle, fascia and tendon of lower back, initial encounter; W00.0XXA Fall on same level due to ice and snow, initial encounter; Y92.89 Other specified places as the place of occurrence of the external cause; Y93.89 Activity, other specified; M62.830 Muscle spasm of back; Z3A.18 18 weeks gestation of pregnancy; Z88.0 Allergy status to penicillin; Z88.5 Allergy status to narcotic agent | CPT/HCPCS: 99283 ==

== ENCOUNTER 2017-10-03 15:48 | Outpatient (CLI) | payer OTHER ==
[2017-10-03] MEDS ORDERED: NORCO, ANEXSIA 5/325MG TABLET (HYDROcodone/ACETAMINOPHEN) As Ordered (16:56)
[2017-10-03] MEDS: ACETAMINOPHEN 325 MG TAB PO (17:16)
== END 2017-10-03 18:20 | disposition home or self-care (01) ==
LOC: M LDO 15:48
DX: O99.89 Other specified diseases and conditions complicating pregnancy, childbirth and the puerperium (principal); Z3A.31 31 weeks gestation of pregnancy; R09.81 Nasal congestion; R11.10 Vomiting, unspecified; R05 Cough; R51 Headache
CPT/HCPCS: 76815

== ENCOUNTER 2017-11-03 19:24 | Outpatient (CLI) | payer OTHER | END 2017-11-03 20:30 | disposition home or self-care (01) | LOC: M LDO 19:24 | DX: O47.03 False labor before 37 completed weeks of gestation, third trimester (principal); Z3A.35 35 weeks gestation of pregnancy | CPT/HCPCS: 59025 ==

== ENCOUNTER 2017-11-22 20:58 | Outpatient (CLI) | payer OTHER | END 2017-11-22 21:50 | disposition home or self-care (01) | LOC: M LDO 20:58 | DX: O47.1 False labor at or after 37 completed weeks of gestation (principal); Z3A.38 38 weeks gestation of pregnancy | CPT/HCPCS: 59025 ==

== ENCOUNTER 2017-11-25 05:37 | Inpatient (IN) | payer OTHER ==
[2017-11-25] MEDS: LR 1,000 ML IV ×4 (06:00→22:31)
[2017-11-25] MEDS: ACETAMINOPHEN 650 MG SUPP PR (06:00)
[2017-11-25] MEDS: BUPIVACAINE HCL 0.5% 30 ML VIAL XX (06:15)
[2017-11-25] MEDS ORDERED: BUPIVACAINE HCL 0.5% 10 ML VIAL XX (06:15)
[2017-11-25] MEDS ORDERED: AZITHROMYCIN INJ 500MG VIAL (J0456) As Ordered (06:39)
[2017-11-25] MEDS: AZITHROMYCIN INJ 500 MG, VIAL MATE ADAPTER 1 EACH in D5W 250 ML IV (06:55)
[2017-11-25] MEDS ORDERED: LR 1,000 ML IV (07:00)
[2017-11-25 07:34] LABS: HEMATOCRIT 35.4 % (36.0-47.0); HEMOGLOBIN 11.8 g/dl (12.0-15.5); MEAN CORPUSCULAR HEMOGLOBIN 30.4 pg (27.0-33.0); MEAN CORPUSCULAR HGB CONC 33.3 g/dl (32.0-36.5); MEAN CORPUSCULAR VOLUME 91.2 fl (80.0-96.0); PLATELET COUNT, AUTOMATED 257 10^3/uL (150-450); RED BLOOD COUNT 3.88 10^6/uL (4.00-5.40); RED CELL DISTRIBUTION WIDTH 13.8 % (11.5-14.5); WHITE BLOOD COUNT 8.8 10^3/uL (4.0-10.0)
[2017-11-25] MEDS: BICITRA 30ML SOLN UDC PO (07:45)
[2017-11-25] MEDS ORDERED: ONDANSETRON 4MG/2ML VIAL (J2405) IV ×2 (08:03→10:00)
[2017-11-25] MEDS ORDERED: NALOXONE INJ 0.4 MG/1 ML VIAL (J2310) IV ×2 (08:03)
[2017-11-25] MEDS ORDERED: ePHEDrine SULFATE 25 MG/5 ML(5MG/ML) SYRINGE As Ordered (08:23)
[2017-11-25] MEDS ORDERED: OXYTOCIN INJ 10 UNITS/ML VIAL (J2590) As Ordered (08:23)
[2017-11-25] MEDS ORDERED: PHENYLephrine HCL 500 MCG/5 ML (100MCG/ML) SYRINGE (J2370) As Ordered ×3 (08:23→08:52)
[2017-11-25] MEDS ORDERED: ONDANSETRON 4MG/2ML VIAL (J2405) As Ordered (08:23)
[2017-11-25] MEDS ORDERED: MORPHINE PRES-FREE INJ 10 MG/10 ML VIAL (J2274) As Ordered (08:23)
[2017-11-25] MEDS ORDERED: KETOROLAC 60 MG/2 ML VIAL (J1885) As Ordered (08:34)
[2017-11-25] MEDS ORDERED: MIDAZOLAM INJ 2 MG/2 ML VIAL (J2250) As Ordered (08:45)
[2017-11-25 08:58] LABS: CORD GAS ABE A -4.2; CORD GAS HCO3 A 22.6 MEQ/L; CORD GAS O2 SAT A 42.3 %; CORD GAS PCO2 A 48.5 mmHg; CORD GAS PH A 7.286 UNITS; CORD GAS SBC A 19.9 MEQ/L; CORD GAS TCO2 A 24.1 MEQ/L
[2017-11-25] MEDS: PRENATAL VITAMINS CHEWABLE TABLET PO (09:00)
[2017-11-25 09:02] LABS: CORD GAS ABE V -1.8; CORD GAS O2 SAT V 71.7 %; CORD GAS PCO2 V 44.7 mmHg; CORD GAS PH V 7.348 UNITS; CORD GAS PO2 V 30.9 mmHg; CORD GAS SBC V 22.5 MEQ/L; CORD GAS TCO2 V 25.4 MEQ/L
[2017-11-25] MEDS ORDERED: BUPIVACAINE HCL 0.5% 30 ML VIAL As Ordered (09:02)
[2017-11-25] MEDS ORDERED: OXYTOCIN DRIP 30 UNITS in APPROPRIATE DILUENT 1 EA IV (09:26)
[2017-11-25] MEDS ORDERED: METHYLERGONOVINE MALEATE 0.2 MG TAB PO (09:30)
[2017-11-25] MEDS ORDERED: ANUSOL HC CREAM 30GM TOP (09:30)
[2017-11-25] MEDS ORDERED: OXYTOCIN INJ 10 UNITS/ML VIAL (J2590) IV (09:30)
[2017-11-25] MEDS ORDERED: fentaNYL 100 MCG/2 ML INJECTION (J3010) IV (10:00)
[2017-11-25] MEDS ORDERED: HYDROMORPHONE HCL 0.5 MG/ 0.5 ML SYRINGE (J1170 PER 1) IV (10:00)
[2017-11-25] MEDS ORDERED: NALBUPHINE HCL 10 MG/ML AMP (J2300) IV (10:00)
[2017-11-25] MEDS ORDERED: MEPERIDINE INJ 25 MG/ML VIAL (J2175) IV (10:00)
[2017-11-25] MEDS ORDERED: PERCOCET 5MG/325MG TAB PO (10:00)
[2017-11-25] MEDS ORDERED: diphenhydrAMINE INJ 50MG/ML VIAL (J1200) As Ordered (10:06)
[2017-11-25] MEDS ORDERED: METOCLOPRAMIDE INJ 10MG/2ML VIAL (J2765) As Ordered (10:10)
[2017-11-25] MEDS: METOCLOPRAMIDE INJ 10MG/2ML VIAL (J2765) IV (10:19)
[2017-11-25] MEDS: diphenhydrAMINE INJ 50MG/ML VIAL (J1200) IV (10:19)
[2017-11-25] MEDS: RHOGAM 300 MCG (1500 IU) INJ (J2790) IM (11:37)
[2017-11-25] MEDS: MEASLES,MUMPS,RUBELLA VACCINE INJ (MMR-II) (90707) SC (11:37)
[2017-11-25] MEDS: KETOROLAC 30 MG/ML VIAL (J1885) IV ×2 (14:09→20:13)
[2017-11-25] MEDS: ONDANSETRON 4MG/2ML VIAL (J2405) IV (14:49)
[2017-11-25] MEDS: NALBUPHINE HCL 10 MG/ML AMP (J2300) IV (17:21)
[2017-11-25] MEDS: PROMETHAZINE INJ 25 MG/ML VIAL (J2550) IV (20:56)
[2017-11-25] MEDS: DOCUSATE SODIUM 100 MG CAP PO (20:57)
[2017-11-26] MEDS: KETOROLAC 30 MG/ML VIAL (J1885) IV (02:29)
[2017-11-26] MEDS: PERCOCET 5MG/325MG TAB PO ×3 (05:39→21:17)
[2017-11-26 07:16] LABS: HEMATOCRIT 34.4 % (36.0-47.0); HEMOGLOBIN 11.4 g/dl (12.0-15.5); MEAN CORPUSCULAR HEMOGLOBIN 30.3 pg (27.0-33.0); MEAN CORPUSCULAR HGB CONC 33.1 g/dl (32.0-36.5); MEAN CORPUSCULAR VOLUME 91.5 fl (80.0-96.0); PLATELET COUNT, AUTOMATED 246 10^3/uL (150-450); RED BLOOD COUNT 3.76 10^6/uL (4.00-5.40); RED CELL DISTRIBUTION WIDTH 13.8 % (11.5-14.5); WHITE BLOOD COUNT 10.5 10^3/uL (4.0-10.0)
[2017-11-26] MEDS: PRENATAL VITAMINS CHEWABLE TABLET PO (08:21)
[2017-11-26] MEDS: IBUPROFEN 800 MG TAB PO ×2 (11:10→19:33)
[2017-11-26] MEDS: ONDANSETRON 4MG/2ML VIAL (J2405) IV (12:42)
[2017-11-26] MEDS: DOCUSATE SODIUM 100 MG CAP PO (19:32)
[2017-11-26] MEDS: MOM 30ML SUSPENSION UDC PO (19:32)
[2017-11-27] MEDS: PERCOCET 5MG/325MG TAB PO ×2 (01:47→09:15)
[2017-11-27] MEDS: IBUPROFEN 800 MG TAB PO ×2 (02:27→11:00)
[2017-11-27] MEDS: PRENATAL VITAMINS CHEWABLE TABLET PO (08:39)
== END 2017-11-27 11:50 | disposition home or self-care (01) | DRG 765 ==
LOC: M LDI 05:37 → M OBS 11:04
PROVIDERS: Obstetrics & Gynecology
PROC: 10D00Z1 Extraction of Products of Conception, Low, Open Approach (ICD-10-PCS; principal; 2017-11-25 07:30)
PROC: 0UL70CZ Occlusion of Bilateral Fallopian Tubes with Extraluminal Device, Open Approach (ICD-10-PCS; 2017-11-25 07:30)
DX: O69.1XX0 Labor and delivery complicated by cord around neck, with compression, not applicable or unspecified (principal); O40.3XX0 Polyhydramnios, third trimester, not applicable or unspecified; Z37.0 Single live birth; Z30.2 Encounter for sterilization; Z88.0 Allergy status to penicillin; O99.214 Obesity complicating childbirth; Z88.5 Allergy status to narcotic agent; E66.9 Obesity, unspecified; Z68.34 Body mass index [BMI] 34.0-34.9, adult; O34.211 Maternal care for low transverse scar from previous cesarean delivery; O32.1XX0 Maternal care for breech presentation, not applicable or unspecified; Z3A.39 39 weeks gestation of pregnancy